=== PATIENT | female | born 1945 | race Caucasian/White ===

== ENCOUNTER → 2017-06-22 | Outpatient (CLI) | payer MEDICARE ==
[~2017-06-22] MED LIST: ALPRAZOLAM 0.0.25 MG PO; ASPIR 8181 MG PO; ASPIRIN EC81 M1 PO; ATORVASTATIN CA40 MG PO; CLEOCIN HCL150 MG PO; COZAAR 50 MG TA50 M2 PO; CRESTOR10 MG PO; ESTRACE2 MG PO; ESTRADIOL 1 MG T1 M1 PO; FISH OIL 1,0001 EAC5 PO; FISH OIL 1,2001 EAC3 PO; IMITREX100 MG PO; NORCO 5-325 TA1 EACH PO; POTASSIUM20 PO; TOPAMAX 100 MG100 MG PO; TOPAMAX100 MG PO; TRAMADOL 50 MG50 MG PO; VITAMIN B-12500 MCG PO; VITAMIN D1000 UNI1 PO; ZOLOFT 50 MG TA50 M1 PO; ZOLOFT100 MG PO
== END ==
LOC: M.RAD 13:37
DX: Z12.31 Encounter for screening mammogram for malignant neoplasm of breast (principal)

== ENCOUNTER 2020-11-29 09:48 | Observation (INO) | payer MEDICARE ==
[~2020-11-29] VITALS: Ht 157.5 cm; Wt 68.0 kg
[2020-11-29 10:06] VITALS: BP 162/78
[2020-11-29] MEDS ORDERED: DILTIAZEM ER180 M2 PO (10:10)
[2020-11-29 10:26] LABS: ABSOLUTE EOSINOPHILS 0.1 thou/uL (0.0-0.7); ABSOLUTE LYMPHOCYTES 1.8 thou/uL (0.8-5.3); ABSOLUTE MONOCYTES 0.3 thou/uL (0.0-1.2); ABSOLUTE NEUTROPHILS 2.6 thou/uL (1.6-8.1); BASOPHILS 0.5 %; EOSINOPHILS 1.3 %; HEMATOCRIT 40.4 % (37.0-47.0); HEMOGLOBIN 13.9 gm/dL (12.0-15.0); MCH 32.3 pg (26.0-34.0); MCHC 34.3 g/dL (28.0-37.0); MCV 94.1 fL (80.0-100.0); MONOCYTES 6.4 %; MPV 7.1 fl. (7.2-11.1); NUCLEATED RBCS 0 /100WBC; PLATELET COUNT* 193 thou/uL (150-400); POLYS 54.8 %; RBC 4.29 mil/uL (4.20-5.00); RDW-CV 14.9 % (10.5-14.5); WBC 4.8 thou/uL (4.0-11.0)
[2020-11-29 10:39] LABS: CALCIUM 8.8 mg/dL (8.5-10.1); CREATININE 1.2 mg/dL (0.6-1.3); POTASSIUM 3.5 mmol/L (3.5-5.1)
[2020-11-29 10:43] LABS: ALBUMIN 3.9 g/dL (3.4-5.0); TOTAL BILIRUBIN 0.4 mg/dL (<0.1-1.0); TOTAL PROTEIN 7.6 g/dL (6.4-8.2)
[2020-11-29 11:32] LABS: URINE BILIRUBIN NEGATIVE (Negative); URINE BLOOD NEGATIVE (Negative); URINE CLARITY CLEAR; URINE COLOR YELLOW; URINE GLUCOSE-RANDOM NEGATIVE (Negative); URINE KETONES NEGATIVE (Negative); URINE LEUKOCYTES NEGATIVE (Negative); URINE NITRITE NEGATIVE (Negative); URINE PROTEIN NEGATIVE (Negative); URINE SPECIFIC GRAVITY <= 1.005 (1.005-1.030); URINE UROBILINOGEN 0.2 E.U./dl (0.2-1.0)
--- NOTE | 2020-11-29 14:28 | EKG ---
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: TP : 1945 Requested By: Presley Garcia Order Number: [id number] MD: Jorge L Roque Measurements Intervals Norman Rate: 73 P: 18 NJ: 159 QRS: -30 QRSD: 100 T: 25 QT: 387 QTc: 427 Interpretive Statements Sinus rhythm Left axis deviation Minimal ST depression, lateral leads Compared to ECG 07/09/2015 12:33:08 Left-axis deviation now present ST (T wave) deviation now present Electronically Signed On 11-29-2020 14:28:23 CDT by Jorge L Roque [email or web address] <ELECTRONICALLY SIGNED> By: Jorge L Roque MD, [facility] 11/29/20 1428 1005 1005 Jorge L Roque MD, [facility] /EPI
[2020-11-29 16:25] VITALS: BP 127/70
[2020-11-29 17:19] VITALS: BP 127/70
[2020-11-29 17:30] VITALS: BP 137/73
--- NOTE | 2020-11-29 19:01 | NUR ---
PT ADMITTED FROM ED AT APPROX 1730. PT IS A&OX4 PLEASANT AND RESPONDS READILY. PT PRESENTED TO UNIT WITH NO COMPLAINTS OF PAIN OR DISCOMFORT. PT DENIES ANY DIZZINESS AT THIS TIME. VSS, ORIENTED TO ROOM, FALL AND SAFETY PRECAUTIONS AND PT VERBALIZES UNDERSTANDING. PT UP AD CELESTINO. CONTINENT OF URINE. HEART MONITOR ON AND SHOWING SR WITH HEART RATE 73.
[2020-11-29 22:04] VITALS: BP 124/66
[2020-11-30] VITALS (7 sets, daily range): BP systolic 115–151; BP diastolic 66–79
--- NOTE | 2020-11-30 12:18 | NUR ---
Pt is A&O. Resides at home alone. Active and independent. No DME. No hx of HH or SNF. Pt to dc to home today, plan outpt stress test. No needs.
--- NOTE | 2020-11-30 14:24 | 2DMMODE ---
[place] [address] 2 D/M-MODE ECHOCARDIOGRAM Name: SHAMA GROSSMAN Room: [address] [place]#: [id number] Admission: 11/29/20 Attend Phys: Lola Nath Discharge: Date of : 45 Date of Service: 11/30/20 1424 Report #: [id number] THIS REPORT FOR: cc: Segundo Bangura Steve T. DO Holkins, John M. MD [facility] ~ APPROVED REPORT Study performed: 11/30/2020 12:27:45 EXAM: Comprehensive 2D, Doppler, and color-flow Echocardiogram Patient Location: Bedside BSA: 1.06 HR: 61 bpm BP: 141/67 mmHg Other Information Study Quality: Adequate Indications Dizziness and Vertigo Dyspnea Elevated Troponin SVT 2D Dimensions IVSd: 9.10 (7-11mm) LVOT Diam: 18.19 (18-24mm) LVDd: 43.36 mm PWd: 8.46 (7-11mm) Ascending Ao: 33.06 (22-36mm) LVDs: 27.65 (25-40mm) Aortic Root: 27.14 mm Volumes Left Atrial Volume (Systole) LA ESV Index: 33.20 mL/m2 Aortic Valve AoV Peak Brooks.: 1.16 m/s AO Peak Gr.: 5.39 mmHg LVOT Max P.45 mmHg AO Mean Gr.: 2.69 mmHg LVOT Mean P.40 mmHg LVOT Max V: 0.93 m/s AO V2 VTI: 23.71 cm LVOT Mean V: 0.53 m/s SACHI (VTI): 2.22 cm2 LVOT V1 VTI: 20.30 [place] [address] 2 D/M-MODE ECHOCARDIOGRAM Name: SHAMA GROSSMAN Room: [address] Marisela#: [id number] Admission: 11/29/20 Attend Phys: Lola Nath Discharge: Date of : 45 Date of Service: 11/30/20 1424 Report #: [id number] Mitral Valve E/A Ratio: 0.76 MV Decel. Time: 192.69 ms MV E Max Brooks.: 0.55 m/s MV PHT: 55.88 ms MVA (PHT): 3.94 cm2 TDI E/Lateral E': 5.50 E/Medial E': 9.17 Medial E' Brooks.: 0.06 m/s Lateral E' Brooks.: 0.10 m/s Pulmonary Valve PV Peak Brooks.: 0.84 m/s PV Peak Gr.: 2.84 mmHg Tricuspid Valve RAP Estimate: 5.00 mmHg TR Peak Gr.: 27.11 mmHg RVSP: 32.11 mmHg PA Pressure: 32.11 mmHg Left Ventricle The left ventricle is normal size. There is normal LV segmental wall motion. There is normal left ventricular wall thickness. Left ventricular systolic function is normal. The left ventricular ejection fraction is within the normal range. LVEF is 55-60%. Grade I - abnormal relaxation pattern. Right Ventricle The right ventricle is normal size. The right ventricular systolic function is normal. Atria The left atrium size is normal. The right atrium size is normal. Aortic Valve Mild aortic valve sclerosis. Trace aortic regurgitation. There is no aortic valvular stenosis. Mitral Valve The mitral valve is normal in structure. Trace mitral regurgitation. No evidence of mitral valve stenosis. Tricuspid Valve The tricuspid valve is normal in structure. [place] [address] 2 D/M-MODE ECHOCARDIOGRAM Name: SHAMA GROSSMAN Room: [address] Marisela#: [id number] Admission: 11/29/20 Attend Phys: Lola Nath Discharge: Date of : 45 Date of Service: 11/30/20 1424 Report #: [id number] regurgitation. Pulmonic Valve The pulmonary valve is normal in structure. There is no pulmonic valvular regurgitation. Great Vessels The aortic root is normal in size. IVC is normal in size and collapses >50% with inspiration. Pericardium There is no pericardial effusion. <Conclusion> The left ventricle is normal size. There is normal left ventricular wall thickness. Left ventricular systolic function is normal. The left ventricular ejection fraction is within the normal range. LVEF is 55-60%. Grade I - abnormal relaxation pattern. The right ventricle is normal size. The left atrium size is normal. Mild aortic valve sclerosis. Trace aortic regurgitation. There is no aortic valvular stenosis. The mitral valve is normal in structure. The tricuspid valve is normal in structure. IVC is normal in size and collapses >50% with inspiration. There is no pericardial effusion. There is normal LV segmental wall motion. <ELECTRONICALLY SIGNED> By: Jorge L Roque MD, FACC 11/30/20 1424 1424 1424 Jorge L Roque MD, FACC /INF
--- NOTE | 2020-11-30 16:55 | NUR ---
DISCHARGED TO HOME. TAKEN OUT BY W/C. IV'S BOTH DC'D WITH CATH CANNULA INTACT PRESSURE APPLIED UNTIL BLEEDING CEASED AND COTTON BALL AND TAPE APPLIED. PT VERBALIZED UNDERSTANDING TO ALL DISCHARGE INSTRUCTIONS AND FOLLOW UP DOCTOR VISITS.
--- NOTE | 2020-11-30 16:58 | NUR ---
PT TO FOLLOW CARDIOLOGY'S INSTRUCTIONS ON HOLTER MONITOR THAT THEY PUT ON HER BEFORE SHE LEFT.
== END 2020-11-30 16:54 | disposition home or self-care (01) ==
LOC: M.ERS 09:48 → M.TBA-ER 12:25 → M.2W 17:54
PROVIDERS: Emergency Medicine; ADMIT Internal Medicine; ATTEND Internal Medicine
DX: R06.09 Other forms of dyspnea (principal); R79.89 Other specified abnormal findings of blood chemistry; Z20.822 Contact with and (suspected) exposure to COVID-19; Z90.710 Acquired absence of both cervix and uterus; Z90.49 Acquired absence of other specified parts of digestive tract; Z79.82 Long term (current) use of aspirin; Z79.899 Other long term (current) drug therapy; Z88.8 Allergy status to other drugs, medicaments and biological substances